=== PATIENT | female | born 2000 | race Asian ===

== ENCOUNTER 2021-07-05 05:53 | Emergency (ER) | payer BC, SELFPAY ==
[2021-07-05 06:00] VITALS: BP 113/66; BP 114/62; PULSE 64; PULSE 70; RESP 15; TEMP 37; O2SAT 100; BMI 17.0
--- NOTE | 2021-07-05 06:14 | ECG_ITS ---
Test Reason : CHEST TIGHNESS Blood Pressure : / mmHG Vent. Rate : 064 BPM Atrial Rate : 064 BPM P-R Int : 136 ms QRS Dur : 082 ms QT Int : 418 ms P-R-T Axes : 026 089 070 degrees QTc Int : 431 ms Normal sinus rhythm Possible Early repolarization Normal ECG No previous ECGs available Referred By: Florentin Sewell Electronically Signed By:LISE CABRALES MD
--- NOTE | 2021-07-05 06:15 | ED.ARRPALP ---
HPI - Arrhythmia/Palpitations General Chief Complaint: Arrhythmia/Palpitations <Florentin Sewell MD - Last Filed: 07/05/21 06:33> Stated Complaint: palpitations <Florentin Sewell MD - Last Filed: 07/05/21 06:33> Time Seen by Provider: 07/05/21 06:03 <Florentin Sewell MD - Last Filed: 07/05/21 06:33> Source: patient <Florentin Sewell MD - Last Filed: 07/05/21 06:33> Mode of arrival: EMS <Florentin Sewell MD - Last Filed: 07/05/21 06:33> Limitations: no limitations <Florentin Sewell MD - Last Filed: 07/05/21 06:33> History of Present Illness HPI narrative: 20-year-old female who presents emergency department for evaluation of palpitations. The patient states that at 1:00 a.m. she had a conversation with her mother. She states that the conversation was very stressful and did cause her to be anxious. She states that she was awake at 4:00 a.m. reading a book when she had sudden onset of palpitations. She states that she felt as if her heart was beating fast. She states that the fast heart rate sensation lasted for at least 1 hour. She denied lightheadedness, dizziness, chest pain, nausea, vomiting, diaphoresis associated with the palpitations. The patient did not feel well and an ambulance was called and she was brought to the emergency department for evaluation. Here in the emergency department she states that she feels anxious but she does not want any medications. The patient states that she was diagnosed last year with depression, anxiety and PTSD. She had been on Lexapro and Prozac in the past but is no longer taking these medications. She denied fever, chills, shortness of breath, cough, myalgias, arthralgias, diarrhea, frequency, urgency or dysuria. <Florentin Sewell MD - Last Filed: 07/05/21 06:33> Related Data Allergies/Adverse Reactions: Allergies Allergy/AdvReac Type Severity Reaction Status Date / Time No Known Allergies Allergy Verified 07/05/21 06:06 <Florentin Sewell MD - Last Filed: 07/05/21 06:33> Review of Systems Review of Systems: Yes all other systems are reviewed and are negative <Florentin Sewell MD - Last Filed: 07/05/21 06:33> [facility] Past Medical History [facility] Narrative: Past medical history: Scoliosis, depression, anxiety, PTSD. Past surgical history: Hernia repair. Social history: Patient denies tobacco, alcohol and drug use. She is a student at [employer]. <Florentin Sewell MD - Last Filed: 07/05/21 06:33> Medical History: Medical History (Updated 07/05/21 @ 09:01 by Renetta Del Rio MD) No known health problems <Florentin Sewell MD - Last Filed: 07/05/21 06:33> Surgical History: Surgical History (Updated 07/05/21 @ 06:05 by Paula Collado) No history of previous surgery <Florentin Sewell MD - Last Filed: 07/05/21 06:33> Social History Social History: Social History Alcohol intake: never Patient Tobacco Use Status: Never used Tobacco Use of substances other than those prescribed or required for medical reasons: No Advance Directives: No Patient : No <Florentin Sewell MD - Last Filed: 07/05/21 06:33> Physical Exam Vital Signs: Vital Signs: Last Vital Signs Temp 98.6 F 07/05/21 07:56 Pulse 69 07/05/21 07:56 Resp 12 07/05/21 07:56 BP 103/64 07/05/21 07:56 Pulse Ox 99 07/05/21 07:56 Body Mass Index 17.0 <Florentin Sewell MD - Last Filed: 07/05/21 06:33> Vital Signs: Last Vital Signs Temp 98.6 F 07/05/21 07:56 Pulse 69 07/05/21 07:56 Resp 12 07/05/21 07:56 BP 103/64 07/05/21 07:56 Pulse Ox 99 07/05/21 07:56 Body Mass Index 17.0 <Renetta Del Rio MD - Last Filed: 07/05/21 09:01> Const: Other: Very pleasant and cooperative female patient, she does not appear to be in distress, she answers all questions appropriately. <Florentin Sewell MD - Last Filed: 07/05/21 06:33> HENMT: Head: Yes normal to inspection, Yes normocephalic and Yes atraumatic <Florentin Sewell MD - Last Filed: 07/05/21 06:33> Ears: external ears normal <Florentin Sewell MD - Last Filed: 07/05/21 06:33> General nose exam: Normal external nose present <MD Brandon Woods Last Filed: 07/05/21 06:33> Face and sinus: Yes normal facial exam <MD Brandon Woods Last Filed: 07/05/21 06:33> Mouth: Normal oral and palatal mucosa present <MD Brandon Woods Last Filed: 07/05/21 06:33> Throat: Yes posterior oropharynx normal <Florentin Sewell MD - Last Filed: 07/05/21 06:33> Eyes: General: appearance normal, both eyes and all related structures <Florentin Sewell MD - Last Filed: 07/05/21 06:33> Pupils: Equal, round and reactive pupils present <MD Brandon Woods Last Filed: 07/05/21 06:33> Neck: Neck: Yes normal visual inspection, Yes no lymphadenopathy, Yes trachea midline and Yes supple <MD Brandon Woods Last Filed: 07/05/21 06:33> Chest: Chest palpation & inspection: normal inspection of the chest and normal palpation of entire chest wall <MD Brandon Woods Last Filed: 07/05/21 06:33> Resp: Effort & Inspection: normal respiratory effort and able to speak in complete sentences <MD Brandon Woods Last Filed: 07/05/21 06:33> Auscultation: clear to auscultation bilaterally <MD Brandon Woods Last Filed: 07/05/21 06:33> Cardio: Rate: regular rate <MD Brandon Woods Last Filed: 07/05/21 06:33> Rhythm: regular rhythm <Florentin Sewell MD - Last Filed: 07/05/21 06:33> Heart sounds: S1 normal heart sound present, S2 normal heart sound present and no murmurs <Florentin Sewell MD - Last Filed: 07/05/21 06:33> GI: Inspection: Yes normal to inspection <Florentin Sewell MD - Last Filed: 07/05/21 06:33> Palpation (GI): Soft to palpation, nontender and no guarding <Florentin Sewell MD - Last Filed: 07/05/21 06:33> Auscultation: normal bowel sounds <Florentin Sewell MD - Last Filed: 07/05/21 06:33> : General: Yes no CVA tenderness <Florentin Sewell MD - Last Filed: 07/05/21 06:33> Back/Spine/Pelvis: Back: no CVA tenderness <Florentin Sewell MD - Last Filed: 07/05/21 06:33> Skin: General skin exam: no rashes or lesions noted <Florentin Sewell MD - Last Filed: 07/05/21 06:33> Neuro: Cranial nerves: Yes CN's II-XII intact bilaterally and Yes Equal, round and reactive pupils present <Florentin Sewell MD - Last Filed: 07/05/21 06:33> Cognition (Neuro): normal cognition <Florentin Sewell MD - Last Filed: 07/05/21 06:33> Motor exam (neuro): 5/5 motor strength present throughout <Florentin Sewell MD - Last Filed: 07/05/21 06:33> Extrem: General: Yes normal to inspection <Florentin Sewell MD - Last Filed: 07/05/21 06:33> Psych: Appearance: grossly normal <Florentin Sewell MD - Last Filed: 07/05/21 06:33> Speech and movement: Normal speech and movement present <Florentin Sewell MD - Last Filed: 07/05/21 06:33> Affect: normal affect <Florentin Sewell MD - Last Filed: 07/05/21 06:33> Attitude: cooperative <Florentin Sewell MD - Last Filed: 07/05/21 06:33> Thought process: Normal thought process present <Florentin Sewell MD - Last Filed: 07/05/21 06:33> Thought content: Normal thought content present <Florentin Sewell MD - Last Filed: 07/05/21 06:33> Course Course Course Narrative: 20-year-old female, [employer] student who presents emergency department for evaluation of 1 hour palpitations. She had no other concerning associated symptoms. The patient did have a stressful conversation with her mother at 1:00 a.m. and the symptoms started at 4:00 a.m.. Patient does have past medical history significant for depression, anxiety and PTSD and she is currently in on a medications. She denies being suicidal or homicidal. Vital signs were normal. Physical examination was unremarkable. I did order a laboratory workup to include CBC, CMP, troponin, urinalysis and urine test. The patient will be kept on the radiation monitor. The patient does not want any medications at this time for anxiety. 0630: The patient's laboratory evaluation and EKG are pending at the end of my shift. The patient's care was turned over to my colleague, Dr. Renetta Del Rio. <Florentin Sewell MD - Last Filed: 07/05/21 06:33> MDM - Arrhythmia/Palpitations MDM Narrative Medical decision making narrative: Well-appearing no distress electrolytes are normal. Symptoms likely results from anxiety. Patient's EKG is normal. It shows a sinus pattern heart rate is 60 TR QRS QT within normal limits is no acute ST segment elevation. Patient in no distress. Will discharge patient home. In stable condition. <Renetta Del Rio MD - Last Filed: 07/05/21 09:01> Differential Diagnosis Differential diagnosis: Likely palpitations and anxiety <Renetta Del Rio MD - Last Filed: 07/05/21 09:01> Lab Data Result diagrams: : 07/05/21 06:39 07/05/21 06:39 <Florentin Sewell MD - Last Filed: 07/05/21 06:33> Labs: Lab Results 07/05/21 07/05/21 07/05/21 Range/Units 06:39 06:39 06:39 WBC 9.3 (4.8-10.8) X10*3/uL RBC 4.41 (4.20-5.50) X10*6/uL Hgb 13.0 (12.0-16.0) g/dl Hct 39.5 (37-47) % MCV 89.6 (80-98) fL MCH 29.5 (27.0-33.0) pg MCHC 32.9 (31.0-35.0) g/dl RDW 12.0 (11.0-16.0) % Plt Count 212 (160-400) X10*3/uL MPV 10.7 (9.4-12.3) fL Immature Gran % (Auto) 0.8 H (0.0-0.4) % Neut % (Auto) 66.0 (45-73) % Lymph % (Auto) 25.9 (20-40) % Angelina % (Auto) 6.7 (2-11) % Eos % (Auto) 0.3 (0-4) % Baso % (Auto) 0.3 (0-2) % Lymph # (Auto) 2.4 (1.2-4.9) X10*3/uL Angelina # (Auto) 0.6 (0.1-1.2) X10*3/uL Eos # (Auto) 0.0 (0.0-0.4) X10*3/uL Baso # (Auto) 0.0 (0.0-0.2) X10*3/uL Abs Immat Gran (auto) 0.07 H (0.00-0.03) X10*3/uL Absolute Neuts (auto) 6.1 (2.0-8.3) X10*3/uL Absolute Nucleated RBC 0.000 (0.0-0.012) X10*3/uL Nucleated RBC % (auto) 0.0 (0.0-0.2) /100WBC Sodium 141 (135-145) mmol/L Potassium 3.8 (3.3-5.1) mmol/L Chloride 107 (96-108) mmol/L Carbon Dioxide 25 (22-29) mmol/L Anion Gap 13 (12-20) BUN 12 (9-16) mg/dL Creatinine 0.80 (0.5-1.4) mg/dL Estim Creat Clear Calc 72.6 Estimated GFR > 60 Random Glucose 100 (60-115) mg/dL Calcium 10.1 (8.4-10.2) mg/dL Total Bilirubin 0.5 (0.0-1.0) mg/dL AST 18 (5-31) U/L ALT 15 (0-31) U/L Alkaline Phosphatase 50 (39-117) U/L Troponin I High Sens < 3.5 (<3.5-17.0) ng/L Total Protein 8.2 H (6.5-8.0) g/dL Albumin 4.7 (3.5-5.0) g/dL Urine Color Urine Appearance Urine pH (5.0-8.0) Ur Specific [place] (1.005-1.025) Urine Protein (NEG-TRACE) MG/DL Urine Glucose (UA) (NEG) MG/DL Urine Ketones (NEG) MG/DL Urine Blood (NEG) Urine Nitrite (NEG) Ur Leukocyte Esterase (NEG) Urine Test (NEGATIVE) 07/05/21 07/05/21 Range/Units 08:23 08:23 WBC (4.8-10.8) X10*3/uL RBC (4.20-5.50) X10*6/uL Hgb (12.0-16.0) g/dl Hct (37-47) % MCV (80-98) fL MCH (27.0-33.0) pg MCHC (31.0-35.0) g/dl RDW (11.0-16.0) % Plt Count (160-400) X10*3/uL MPV (9.4-12.3) fL Immature Gran % (Auto) (0.0-0.4) % Neut % (Auto) (45-73) % Lymph % (Auto) (20-40) % Angelina % (Auto) (2-11) % Eos % (Auto) (0-4) % Baso % (Auto) (0-2) % Lymph # (Auto) (1.2-4.9) X10*3/uL Angelina # (Auto) (0.1-1.2) X10*3/uL Eos # (Auto) (0.0-0.4) X10*3/uL Baso # (Auto) (0.0-0.2) X10*3/uL Abs Immat Gran (auto) (0.00-0.03) X10*3/uL Absolute Neuts (auto) (2.0-8.3) X10*3/uL Absolute Nucleated RBC (0.0-0.012) X10*3/uL Nucleated RBC % (auto) (0.0-0.2) /100WBC Sodium (135-145) mmol/L Potassium (3.3-5.1) mmol/L Chloride (96-108) mmol/L Carbon Dioxide (22-29) mmol/L Anion Gap (12-20) BUN (9-16) mg/dL Creatinine (0.5-1.4) mg/dL Estim Creat Clear Calc Estimated GFR Random Glucose (60-115) mg/dL Calcium (8.4-10.2) mg/dL Total Bilirubin (0.0-1.0) mg/dL AST (5-31) U/L ALT (0-31) U/L Alkaline Phosphatase (39-117) U/L Troponin I High Sens (<3.5-17.0) ng/L Total Protein (6.5-8.0) g/dL Albumin (3.5-5.0) g/dL Urine Color STRAW Urine Appearance HAZY Urine pH 6.0 (5.0-8.0) Ur Specific [place] 1.010 (1.005-1.025) Urine Protein NEG (NEG-TRACE) MG/DL Urine Glucose (UA) NEG (NEG) MG/DL Urine Ketones NEG (NEG) MG/DL Urine Blood 3+ H (NEG) Urine Nitrite NEG (NEG) Ur Leukocyte Esterase NEG (NEG) Urine Test NEGATIVE (NEGATIVE) <Florentin Sewell MD - Last Filed: 07/05/21 06:33> Lab Results 07/05/21 07/05/21 07/05/21 Range/Units 06:39 06:39 06:39 WBC 9.3 (4.8-10.8) X10*3/uL RBC 4.41 (4.20-5.50) X10*6/uL Hgb 13.0 (12.0-16.0) g/dl Hct 39.5 (37-47) % MCV 89.6 (80-98) fL MCH 29.5 (27.0-33.0) pg MCHC 32.9 (31.0-35.0) g/dl RDW 12.0 (11.0-16.0) % Plt Count 212 (160-400) X10*3/uL MPV 10.7 (9.4-12.3) fL Immature Gran % (Auto) 0.8 H (0.0-0.4) % Neut % (Auto) 66.0 (45-73) % Lymph % (Auto) 25.9 (20-40) % Angelina % (Auto) 6.7 (2-11) % Eos % (Auto) 0.3 (0-4) % Baso % (Auto) 0.3 (0-2) % Lymph # (Auto) 2.4 (1.2-4.9) X10*3/uL Angelina # (Auto) 0.6 (0.1-1.2) X10*3/uL Eos # (Auto) 0.0 (0.0-0.4) X10*3/uL Baso # (Auto) 0.0 (0.0-0.2) X10*3/uL Abs Immat Gran (auto) 0.07 H (0.00-0.03) X10*3/uL Absolute Neuts (auto) 6.1 (2.0-8.3) X10*3/uL Absolute Nucleated RBC 0.000 (0.0-0.012) X10*3/uL Nucleated RBC % (auto) 0.0 (0.0-0.2) /100WBC Sodium 141 (135-145) mmol/L Potassium 3.8 (3.3-5.1) mmol/L Chloride 107 (96-108) mmol/L Carbon Dioxide 25 (22-29) mmol/L Anion Gap 13 (12-20) BUN 12 (9-16) mg/dL Creatinine 0.80 (0.5-1.4) mg/dL Estim Creat Clear Calc 72.6 Estimated GFR > 60 Random Glucose 100 (60-115) mg/dL Calcium 10.1 (8.4-10.2) mg/dL Total Bilirubin 0.5 (0.0-1.0) mg/dL AST 18 (5-31) U/L ALT 15 (0-31) U/L Alkaline Phosphatase 50 (39-117) U/L Troponin I High Sens < 3.5 (<3.5-17.0) ng/L Total Protein 8.2 H (6.5-8.0) g/dL Albumin 4.7 (3.5-5.0) g/dL Urine Color Urine Appearance Urine pH (5.0-8.0) Ur Specific [place] (1.005-1.025) Urine Protein (NEG-TRACE) MG/DL Urine Glucose (UA) (NEG) MG/DL Urine Ketones (NEG) MG/DL Urine Blood (NEG) Urine Nitrite (NEG) Ur Leukocyte Esterase (NEG) Urine Test (NEGATIVE) 07/05/21 07/05/21 Range/Units 08:23 08:23 WBC (4.8-10.8) X10*3/uL RBC (4.20-5.50) X10*6/uL Hgb (12.0-16.0) g/dl Hct (37-47) % MCV (80-98) fL MCH (27.0-33.0) pg MCHC (31.0-35.0) g/dl RDW (11.0-16.0) % Plt Count (160-400) X10*3/uL MPV (9.4-12.3) fL Immature Gran % (Auto) (0.0-0.4) % Neut % (Auto) (45-73) % Lymph % (Auto) (20-40) % Angelina % (Auto) (2-11) % Eos % (Auto) (0-4) % Baso % (Auto) (0-2) % Lymph # (Auto) (1.2-4.9) X10*3/uL Angelina # (Auto) (0.1-1.2) X10*3/uL Eos # (Auto) (0.0-0.4) X10*3/uL Baso # (Auto) (0.0-0.2) X10*3/uL Abs Immat Gran (auto) (0.00-0.03) X10*3/uL Absolute Neuts (auto) (2.0-8.3) X10*3/uL Absolute Nucleated RBC (0.0-0.012) X10*3/uL Nucleated RBC % (auto) (0.0-0.2) /100WBC Sodium (135-145) mmol/L Potassium (3.3-5.1) mmol/L Chloride (96-108) mmol/L Carbon Dioxide (22-29) mmol/L Anion Gap (12-20) BUN (9-16) mg/dL Creatinine (0.5-1.4) mg/dL Estim Creat Clear Calc Estimated GFR Random Glucose (60-115) mg/dL Calcium (8.4-10.2) mg/dL Total Bilirubin (0.0-1.0) mg/dL AST (5-31) U/L ALT (0-31) U/L Alkaline Phosphatase (39-117) U/L Troponin I High Sens (<3.5-17.0) ng/L Total Protein (6.5-8.0) g/dL Albumin (3.5-5.0) g/dL Urine Color STRAW Urine Appearance HAZY Urine pH 6.0 (5.0-8.0) Ur Specific [place] 1.010 (1.005-1.025) Urine Protein NEG (NEG-TRACE) MG/DL Urine Glucose (UA) NEG (NEG) MG/DL Urine Ketones NEG (NEG) MG/DL Urine Blood 3+ H (NEG) Urine Nitrite NEG (NEG) Ur Leukocyte Esterase NEG (NEG) Urine Test NEGATIVE (NEGATIVE) <Renetta Del Rio MD - Last Filed: 07/05/21 09:01> Discharge Plan Discharge Clinical Impression: Anxiety, Palpitations <Florentin Sewell MD - Last Filed: 07/05/21 06:33> Patient Disposition: Home, Self-Care <Flroentin Sewell MD - Last Filed: 07/05/21 06:33> Instructions: Heart Palpitations (ED), Anxiety (ED) <Florentin Sewell MD - Last Filed: 07/05/21 06:33> Referrals: Armani Monteiro MD [Physician] - 2 days <Florentin Sewell MD - Last Filed: 07/05/21 06:33>
[2021-07-05 06:43] LABS: MANUAL DIFF FLAG NO
[2021-07-05 06:49] LABS: Basophils Percent Auto 0.3 % (0-2); Eosinophils Percent Auto 0.3 % (0-4); Hematocrit 39.5 % (37-47); Imm Gran Abs Auto 0.07 X10*3/uL (0.00-0.03); Imm Gran Pct Auto 0.8 % (0.0-0.4); Lymphocytes Absolute Auto 2.4 X10*3/uL (1.2-4.9); Lymphocytes Percent Auto 25.9 % (20-40); Mean Corpuscular HGB Conc 32.9 g/dl (31.0-35.0); Mean Corpuscular Hemoglobin 29.5 pg (27.0-33.0); Mean Corpuscular Volume 89.6 fL (80-98); Mean Platelet Volume 10.7 fL (9.4-12.3); Monocytes Absolute Auto 0.6 X10*3/uL (0.1-1.2); Monocytes Percent Auto 6.7 % (2-11); Neutrophils Absolute Auto 6.1 X10*3/uL (2.0-8.3); Platelet Count 212 X10*3/uL (160-400); Red Blood Count 4.41 X10*6/uL (4.20-5.50); White Blood Count 9.3 X10*3/uL (4.8-10.8)
[2021-07-05 07:03] LABS: Troponin-I High Sensitivity < 3.5 ng/L (<3.5-17.0)
[2021-07-05 07:07] LABS: Alanine Aminotransferase 15 U/L (0-31); Albumin Level 4.7 g/dL (3.5-5.0); Alkaline Phosphatase 50 U/L (39-117); Anion Gap 13 (12-20); Aspartate Amino Transferase 18 U/L (5-31); Bilirubin Total 0.5 mg/dL (0.0-1.0); Blood Urea Nitrogen 12 mg/dL (9-16); Calcium 10.1 mg/dL (8.4-10.2); Carbon Dioxide 25 mmol/L (22-29); Chloride 107 mmol/L (96-108); Creatinine Clr Calc Pharmacy 72.6; Estimated Glomerular Filt Rate > 60; Glucose Random 100 mg/dL (60-115); Potassium 3.8 mmol/L (3.3-5.1); Sodium 141 mmol/L (135-145); Total Protein 8.2 g/dL (6.5-8.0)
[2021-07-05 07:56] VITALS: BP 103/64; PULSE 69; RESP 12; TEMP 37; O2SAT 99
[2021-07-05 08:39] LABS: Color Urine STRAW; Glucose Urine UA NEG (NEG); Leukocyte Esterase Urine NEG (NEG); Nitrite Urine NEG (NEG); UACC Culture Trigger NO; Urine Blood 3+ (NEG); Urine Ketones NEG (NEG); Urine Protein NEG (NEG-TRACE)
[2021-07-05 08:40] LABS: Appearance Urine HAZY
[2021-07-05 08:41] LABS: UPreg QC Valid YES; Urine Pregnancy NEGATIVE (NEGATIVE)
[2021-07-05 08:52] LABS: WBC Urine 0 /HPF (0-4)
[2021-07-05 08:53] LABS: Renal Epithelial Cells Urine TRACE /LPF; Squamous Epithelial Cell Urine TRACE /LPF
== END 2021-07-05 09:55 | disposition home or self-care (01) ==
PROVIDERS: Emergency Provider Emergency Medicine Emergency Medical Services
DX: R00.2 Palpitations (principal); F41.9 Anxiety disorder, unspecified; F32.9 Major depressive disorder, single episode, unspecified; F43.10 Post-traumatic stress disorder, unspecified
CPT/HCPCS: 36415; 80053; 81001; 81025; 84484; 85025; 93005; 99284; 99285